=== PATIENT | female | born 1990 ===

== ENCOUNTER 2024-12-03 20:41 | Emergency (ER) | payer MEDICARE, MEDICAID, SELFPAY ==
[2024-12-03] VITALS (8 sets, daily range): BP systolic 85–143; BP diastolic 43–87; PULSE 56–98; RESP 12–20; O2SAT 99–100; BMI 28.3
--- NOTE | 2024-12-03 20:53 | ECG_ITS ---
Test Reason : OVERDOSE Blood Pressure : */* mmHG Vent. Rate : 59 BPM Atrial Rate : 59 BPM P-R Int : 126 ms QRS Dur : 96 ms QT Int : 448 ms P-R-T Axes : 24 55 55 degrees QTcB Int : 443 ms Sinus bradycardia Otherwise normal ECG No previous ECGs available Referred By: Jesus Manuel Roldan Electronically Signed By: DONTE DOMINGUEZ
[2024-12-03] MEDS: OLANZapine 10 MG VIAL 5 MG IM (21:05)
[2024-12-03] MEDS: Midazolam HCl 5 MG/ML VIAL IM (21:06)
--- NOTE | 2024-12-03 21:12 | ED_ITS ---
HPI - Psych General Chief Complaint: Psychiatric Symptoms Stated Complaint: psych Time Seen by Provider: 12/03/24 20:53 Source: EMS History of Present Illness ED Provider: Jesus Manuel Roldan MD HPI Narrative: [age] female brought in from outpatient detox she was suspected to have ingested a bag of unknown substance this came as a report from EMS from staff there . Came from [facility]. Patient was retching vomiting yelling and physically aggressive threatening and swinging at staff upon arrival. Limited history obtainable Related Data Allergies Allergy/AdvReac Type Severity Reaction Status Date / Time haloperidol [From Haldol] Allergy Unknown Verified 12/03/24 21:01 [facility] Social History Social History Unable to assess alcohol history related to: Refusing to respond Use of substances other than those prescribed or required for medical reasons: Refusing to respond Advance Directives: No Advance Directives Information Provided: No Do you have a plan to hurt others: No Plan Physical Exam 2 Vital Signs: Vital Signs: Last Vital Signs Pulse 61 12/04/24 06:07 Resp 16 12/04/24 06:07 BP 138/85 12/04/24 06:07 Pulse Ox 93 12/04/24 06:07 O2 Del Method Room Air 12/04/24 06:07 BMI result Body Mass Index 28.3 Const: Other: EXAM: Gen: Arrived in distess, retching and physically aggressive and threatening to staff. Screaming unintelligibly Head: Atraumatic Eyes: Anicteric, Normal conjunctiva. pupils 4-5 m symmetric. ENT: Moist mucosa, no pallor. ?no facial injuries Neck: Supple. Respiratory: Breathing comfortably, No distress.Clear to auscultation bilaterally, symmetric chest expansion, No wheeze, rales, ronchi. Cardiovascular: Regular rate and rhythm. No murmurs or rub. Well perfused periphery, warm extremities. No edema. ? Abdominal: No FOCAL TENDERNESS. Soft, no objective distension. No palpable masses or obvious organomegaly. ?No guarding, no rebound tenderness or other peritoneal findings. : No flank tenderness. Neuro: Alert. Gross movement of all extremities intact. ? Psych: Agitated delerium. MSK: No grossly visible deformity. Vital signs: See flowsheet Course Reevaluation(s) Reevaluation #1: Reassess the patient who is calm sedated but arousable. Tells me ?I got anxious and very nauseous? Time: 22:01 Reevaluation #2: I assumed care of this patient from my colleague, Dr. Red Blunt at 07:00 hours. The patient was seen by the care team. I obtained the following information. The patient is in a substance use disorder program/[facility] and is on methadone. She has been sober for proximally 3 months. The patient was sent in from her program to evaluate for possible substance use. Apparently the patient became very agitated and was vomiting. Here in the emergency department the patient needed to be medicated secondary to her agitation and anxiety. The patient states that this has happened to her in the past whenever she gets anxious. She states she gets violently ill and vomits and gets very agitated. This was confirmed by the care team who did talk to the patient's mother. The patient is now awake and alert and will be discharged back to her [facility]. Medications Administered Discontinued Medications Generic Name Dose Route Start Last Admin Trade Name Freq PRN Reason Stop Dose Admin Sodium Chloride 1,000 mls @ 999 mls/hr 12/03/24 21:00 12/04/24 01:23 Ns IV 12/03/24 22:00 Infused .Q1H1M JAYDE Infusion Lorazepam 2 mg 12/04/24 06:20 12/04/24 06:25 Lorazepam 1 Mg Tablet PO 12/04/24 06:21 2 mg ONCE ONE Administration Midazolam HCl 5 mg 12/03/24 20:57 12/03/24 21:06 Midazolam Hcl 5 Mg/Ml Vial IM 12/03/24 20:58 5 mg ONCE ONE Administration Olanzapine 5 mg 12/03/24 20:53 12/03/24 21:05 Olanzapine 10 Mg Vial IM 12/03/24 20:54 5 mg ONCE ONE Administration Ondansetron HCl 4 mg 12/04/24 06:20 12/04/24 06:25 Ondansetron Odt 4 Mg Tab.Rapdis TRANSLINGU 12/04/24 06:21 4 mg ONCE ONE Administration Medical Decision Making Medical Decision Making MDM Narrative: 34 F arrived from detox facility (staff thought she ate a bag of unknown substance) this was not clarified. Retching. Distressed, Violent with staff. Required restraints , physical and chemical. This was de-escalated, see RN notes for eventual physical restraint removal. No traumatic injuries on exam. Chem/CBC WNL. Bup/Benzos on tox. Needs full clinical reassessment. Continue to monitor. Physician observation. s/o Dr. Malagon 2a. patient denied any overdose says that she was throwing up because of increased anxiety and she would like to see a therapist here. Patient does get similar episodes in the past whenever she gets severe anxiety Differential Diagnosis Differential Diagnoses: The differential diagnosis associated with the presentation includes toxic or metabolic encephalopathy, agitated delerium, toxidrome, ingestion Lab Data MDM Lab Attestation statement: I reviewed the patient's lab results. 12/03/24 21:27 12/03/24 21:27 Labs: Lab Results 12/03/24 12/03/24 Range/Units 21:27 22:37 WBC 13.1 H (4.8-10.8) X10*3/uL RBC 3.75 L (4.20-5.50) X10*6/uL Hgb 10.5 L (12.0-16.0) g/dl Hct 31.6 L (37.0-47.0) % MCV 84.3 (80.0-98.0) fL MCH 28.0 (27.0-33.0) pg MCHC 33.2 (31.0-35.0) g/dl RDW 15.6 (11.0-16.0) % Plt Count 209 (160-400) X10*3/uL MPV 11.0 (9.4-12.3) fL Immature Gran % (Auto) 0.3 (0.0-0.4) % Neut % (Auto) 85.6 H (45-73) % Lymph % (Auto) 8.2 L (20-40) % [place] % (Auto) 5.6 (2-11) % Eos % (Auto) 0.1 (0-4) % Baso % (Auto) 0.2 (0-2) % Lymph # (Auto) 1.1 L (1.2-4.9) X10*3/uL [place] # (Auto) 0.7 (0.1-1.2) X10*3/uL Eos # (Auto) 0.0 (0.0-0.4) X10*3/uL Baso # (Auto) 0.0 (0.0-0.2) X10*3/uL Abs Immat Gran (auto) 0.04 H (0.00-0.03) X10*3/uL Absolute Neuts (auto) 11.2 H (2.0-8.3) x10*3/uL Absolute Nucleated RBC 0.000 (0.0-0.012) X10*3/uL Nucleated RBC % (auto) 0.0 (0.0-0.2) /100WBC Sodium 140 (135-145) mmol/L Potassium 3.3 (3.3-5.1) mmol/L Chloride 106 (96-108) mmol/L Carbon Dioxide 19 L (22-29) mmol/L Anion Gap 18 (12-20) BUN 13 (9-16) mg/dL Creatinine 0.74 (0.5-1.4) mg/dL Estim Creat Clear Calc 115.0 Estimated GFR > 60 Random Glucose 155 H (60-115) mg/dL Calcium 9.6 (8.4-10.2) mg/dL Total Bilirubin 0.4 (0.0-1.0) mg/dL AST 26 (5-31) U/L ALT 16 (0-31) U/L Alkaline Phosphatase 39 (39-117) U/L Total Protein 7.8 (6.5-8.0) g/dL Albumin 4.7 (3.5-5.0) g/dL Urine Color Yellow Urine Appearance Cloudy Urine pH >= 9.0 (5.0-9.0) Ur Specific [place] 1.025 (1.005-1.025) Urine Protein 30 (1+) H (Neg-Trace) mg/dL Urine Glucose (UA) 100 H (Negative) mg/dL Urine Ketones 40 (Negative) mg/dL Urine Blood Negative (Negative) Urine Nitrite Negative (Negative) Ur Leukocyte Esterase Negative (Negative) Urine RBC 0-2 (0-2) /HPF Urine WBC 0-5 (0-5) /HPF Ur Squamous Epith Cells 0-2 (0-2) /HPF Other Crystals Present Urine Bacteria None Seen (None Seen) Hyaline Casts 0-2 (0-2) /LPF Urine Test NEGATIVE (NEGATIVE) Salicylates < 5.0 L (15-30) mg/dL Urine Opiates Screen Not Detected (Not Detect) Ur Buprenorphine Scrn Positive H (Not Detect) ng/mL Ur Oxycodone Screen Not Detected (Not Detect) ng/mL Urine Methadone Screen Not Detected (Not Detect) ng/mL Urine Fentanyl Screen Not Detected (Not Detect) Acetaminophen < 3 (<30) mcg/mL Ur Barbiturates Screen Not Detected (Not Detect) Ur Phencyclidine Scrn Not Detected (Not Detect) Ur Amphetamines Screen Not Detected (Not Detect) U Benzodiazepines Scrn POSITIVE H (Not Detect) Urine Cocaine Screen Not Detected (Not Detect) U Marijuana (THC) Screen Not Detected (Not Detect) Ethyl Alcohol < 10 mg/dL Discharge Plan Discharge Clinical Impression: Acute anxiety Patient Disposition: Xfer Other Transfer Details: Transferred back to residency program Interventions: [place]-Suicide Risk Severity Scale Last Done: 12/03/24 21:02 Print Language: Mongolian
[2024-12-03 21:30] LABS: MANUAL DIFF FLAG NO
[2024-12-03 21:31] LABS: Basophils Percent Auto 0.2 % (0-2); Eosinophils Percent Auto 0.1 % (0-4); Hematocrit 31.6 % (37.0-47.0); Hemoglobin 10.5 g/dl (12.0-16.0); Imm Gran Abs Auto 0.04 X10*3/uL (0.00-0.03); Imm Gran Pct Auto 0.3 % (0.0-0.4); Lymphocytes Absolute Auto 1.1 X10*3/uL (1.2-4.9); Lymphocytes Percent Auto 8.2 % (20-40); Mean Corpuscular HGB Conc 33.2 g/dl (31.0-35.0); Mean Corpuscular Volume 84.3 fL (80.0-98.0); Monocytes Absolute Auto 0.7 X10*3/uL (0.1-1.2); Monocytes Percent Auto 5.6 % (2-11); Neutrophils Absolute Auto 11.2 x10*3/uL (2.0-8.3); Neutrophils Percent Auto 85.6 % (45-73); Platelet Count 209 X10*3/uL (160-400); Red Blood Count 3.75 X10*6/uL (4.20-5.50); Red Cell Distribution Width 15.6 % (11.0-16.0); White Blood Count 13.1 X10*3/uL (4.8-10.8)
[2024-12-03] MEDS: 0.9 % Sodium Chloride 1,000 ML 999 ML IV (21:35)
[2024-12-03 21:48] LABS: Acetaminophen LAB < 3 mcg/mL (<30); Alanine Aminotransferase 16 U/L (0-31); Albumin Level 4.7 g/dL (3.5-5.0); Alkaline Phosphatase 39 U/L (39-117); Anion Gap 18 (12-20); Aspartate Amino Transferase 26 U/L (5-31); Bilirubin Total 0.4 mg/dL (0.0-1.0); Blood Urea Nitrogen 13 mg/dL (9-16); Calcium 9.6 mg/dL (8.4-10.2); Carbon Dioxide 19 mmol/L (22-29); Chloride 106 mmol/L (96-108); Estimated Glomerular Filt Rate > 60; Ethanol < 10 mg/dL; Glucose Random 155 mg/dL (60-115); Potassium 3.3 mmol/L (3.3-5.1); Salicylate < 5.0 mg/dL (15-30); Sodium 140 mmol/L (135-145); Total Protein 7.8 g/dL (6.5-8.0)
--- NOTE | 2024-12-03 22:07 | PC.NURSE ---
On arrival, pt uncooperative, attempting to leave. Getting off and on EMS stretcher multiple times. Police filing S12 on patient. Patient states she needs to get it out and was sticking her fingers down her throat and inducing vomiting. Vomiting up orange colored liquid, no solids or pills noted in vomit. When asked what she took, patient stated she did not take anything. EMS reports that somone at the facility said they saw the patient swallow a bag of something unknown. Pt attempting to get off stretcher and almost falling. Pt uncooperative, not following simple instructions, and not redirectable.. Pt attempting to bite at staff while applying restraints. Pt still attempting to reach hand to mouth while in restraints to continue to induce vomiting. Pt not oriented to date, place or situation. Physician to bedside and patient medicated per SEP. Spoke with staff from [facility] and they are requesting to have a tox screen run on patient.
--- NOTE | 2024-12-03 22:45 | PC.NURSE ---
Restraints removed from patient. Patient calm and sleeping at this time. Elopement band applied to ankle.
[2024-12-03 22:59] LABS: Appearance Urine Cloudy; Color Urine Yellow; Glucose Urine UA 100 mg/dL (Negative); Leukocyte Esterase Urine Negative (Negative); Nitrite Urine Negative (Negative); PH >= 9.0 (5.0-9.0); Specific Gravity - Urine 1.025 (1.005-1.025); UMIC TRIGGER UA YES; Urine Blood Negative (Negative); Urine Ketones 40 mg/dL (Negative); Urine Protein 30 (1+) mg/dL (Neg-Trace)
[2024-12-03 23:00] LABS: UPreg QC Valid YES; Urine Pregnancy NEGATIVE (NEGATIVE)
[2024-12-03 23:09] LABS: Amphetamine Screen Urine Not Detected (Not Detect); Barbiturates, Urine Not Detected (Not Detect); Benzodiazepines Screen Urine POSITIVE (Not Detect); Buprenorphine Scr Positive (Not Detect); Cannabinoid Screen Urine Not Detected (Not Detect); Cocaine Screen Urine Not Detected (Not Detect); Fentanyl, urine Not Detected (Not Detect); Methadone Screen, Urine Not Detected (Not Detect); Opiate Screen Urine Not Detected (Not Detect); Oxycodone Screen Urine Not Detected (Not Detect); Phencyclidine Screen Urine Not Detected (Not Detect)
[2024-12-03 23:12] LABS: Bacteria Urine None Seen (None Seen); Hyaline Casts Urine 0-2 /LPF (0-2); Other Crystals Urine Present; RBC Urine 0-2 /HPF (0-2); Squamous Epithelial Cell Urine 0-2 /HPF (0-2); WBC Urine 0-5 /HPF (0-5)
[2024-12-04 03:16] VITALS: BP 120/84; PULSE 60; RESP 14; O2SAT 100
--- NOTE | 2024-12-04 06:06 | PC.NURSE ---
Attempted to call [employer] twice with no answer.
[2024-12-04 06:07] VITALS: BP 138/85; PULSE 61; RESP 16; O2SAT 93
[2024-12-04] MEDS: Ondansetron ODT 4 MG TAB.RAPDIS TRANSLINGU (06:25)
[2024-12-04] MEDS: LORazepam 1 MG TABLET 2 MG PO (06:25)
--- NOTE | 2024-12-04 06:28 | PC.NURSE ---
Patient awake, reporting feeling anxious and nauseous. Dr. Malagon notified. Patient medicated with Lorazepam 2 mg PO and Zofran 4 mg transl. Patient denies SI/HI and requesting care team consult. Dr. Moon informed.
--- NOTE | 2024-12-04 09:14 | PC.NURSE ---
Pt has been sleeping mostly since this RN arrival. Did wake to have short conversation with Care Team.
--- NOTE | 2024-12-04 09:44 | PC.NURSE ---
Attempted to awake pt but she opened her eyes and closed them. Breathes unlabored and even.
--- NOTE | 2024-12-04 10:02 | PC.NURSE ---
Pt was easily arousable to voice. Skin PWD. Axox3. Denies Si at this time and states that last night's incident was anxiety and mental health triggered by vomiting [employer]INGS INST[employer]ER . Pt is calm. NAD. Awaits Care Team Re-eval.
--- NOTE | 2024-12-04 12:16 | MHC.CARE ---
Pt does not meet the criteria for IPLOC and will be discharged to follow up with current providers. ED provider in agreement.
--- NOTE | 2024-12-04 13:27 | PC.NURSE ---
Pt steady on feet to BR. Eating lunch.
--- NOTE | 2024-12-04 13:53 | PC.NURSE ---
potato picker will be a blue and pink Reji march, Compensation Coordinator from [employer]
[2024-12-04 13:54] VITALS: BP 97/63; PULSE 99; RESP 16; TEMP 37.3; O2SAT 97
[2024-12-04 13:56] VITALS: BP 97/63; PULSE 99; RESP 16; TEMP 37.3; O2SAT 97
== END 2024-12-04 13:57 | disposition other institution (70) ==
PROVIDERS: Emergency Medicine; Emergency Provider Emergency Medicine Emergency Medical Services
DX: F41.1 Generalized anxiety disorder (principal); R11.10 Vomiting, unspecified; R00.1 Bradycardia, unspecified; R11.0 Nausea; R45.1 Restlessness and agitation; Z51.81 Encounter for therapeutic drug level monitoring; Z79.899 Other long term (current) drug therapy
CPT/HCPCS: 36415; 80053; 80143; 80179; 80307; 81001; 81025; 85025; 93005; 96360; 96361; 96372; 99285; J2250; J2359; S9485

== ENCOUNTER → 2024-12-03 20:53 | Outpatient (BNV) | payer MEDICARE, MEDICAID, SELFPAY | PROVIDERS: Emergency Provider Emergency Medicine Emergency Medical Services; Visit Provider Internal Medicine | DX: R00.1 Bradycardia, unspecified (principal) | CPT/HCPCS: 93010 ==